=== PATIENT | female | born 1945 | race Hispanic/Latino ===

== ENCOUNTER 2017-04-23 20:43 | Emergency (ER) | payer MEDICARE ==
[~2017-04-23] VITALS: Ht 154.9 cm; Wt 51.0 kg
[2017-04-23 21:06] VITALS: BP 128/74; PULSE 75; RESP 18; O2SAT 100
--- NOTE | 2017-04-23 21:56 | ED.REPORT ---
HPI-Abd Pain F 40 and Over Date of Service Apr 23, 2017 ED Provider: Lemuel Mitchell MD Pt is a 71 year old with a history of diverticulitis and hysterectomy who presents to the ED complaining of sudden LLQ abdominal pain onset 2 days ago. She c/o associated chills and SOB. She denies fever, hematochezia, diarrhea, and dysuria. Pt reports that her diverticulitis was on the right side, and her symptoms feel similar to when she had diverticulitis. She has had 8 inches of her ascending colon removed due to the recurrent diverticulitis on that side. The pt presented to Urgent Care and was referred to the ED for further evaluation. Her last dose of Cipro and Flagyl were at 14:00 today. She notes that she does not tolerate the medications well and is requesting a different medication to treat her if she has diverticulitis Nursing Notes Stated Complaint: SENT BY URGENT CARE FOR CT SCAN Chief Complaint: Female Abdominal Pain Nursing Notes Reviewed: Yes Allergies: Coded Allergies: Contrast Media (Verified Allergy, Intermediate, Tingling, 04/23/17) NSAIDS (Non-Steroidal Anti-Inflamma (Verified Allergy, Mild, Hives and Rash, 04/23/17) shellfish derived (Verified Allergy, Unknown, 04/23/17) General Time Seen by MD: 21:56 Chief Complaint Abdominal pain Hx Obtained From: Patient Arrived By: Walk-in Sudden in Onset?: Yes Onset Occurred: 2 days ago Symptom Duration: Since onset Location: : LLQ Quality: Painful Radiation: : Does not radiate Severity: Current: Moderate Severity: Maximum: Moderate Recent Healthcare: Recent doctor visit Similar Sx Previous: Yes Past Medical History Past Medical History Breast cancer Diverticulitis Past Surgical History Reports: Hysterectomy Smoking History Unknown if Ever Smoker Social History Other Social History: Good social support, Ambulatory Status Independent Review of Systems Constitutional: Reports: Chills, Denies: Fever Respiratory: Reports: Shortness of breath GI: Reports: Abdominal pain, Denies: Diarrhea, Hematochezia Female: Denies: Dysuria Complete sys rev & neg: except as marked. Physical Exam Vital Signs Vital Signs (First) Date Time Temp Pulse Resp B/P Pulse Ox O2 Delivery O2 Flow Rate FiO2 04/23/17 21:06 36.6 75 18 128/74 100 Room Air Initial VS: Reviewed Head / Eyes: Atraumatic, Normocephalic Neck: Supple, Full range of motion Extremities: Vascular intact, Neuro intact Skin: Warm, Dry, No cyanosis Neurologic: Alert, Oriented, Nonfocal Psychiatric: Mood/affect normal, Behavior normal General/Constitutional: Awake, Alert Respiratory / Chest: Atraumatic, Breath sounds NL, Breath sounds = bilat Cardiovascular: Heart rate NL, Regular rhythm, Heart sounds NL Abdomen: Atraumatic LLQ tenderness to palpation Back: Atraumatic, Full range of motion Interpretation & Diagnostics Lab Results Interpretation Result Diagram: 04/23/17214104/23/172141 Test 04/23/17 21:42 White Blood Count 5.2th/mm3 (3.8-10.1) Red Blood Count 4.14mil/mm3 (3.90-5.20) Hemoglobin 12.2g/dL (12.0-15.6) Hematocrit 35.1% (35.0-46.0) Mean Corpuscular Volume 84.8fL (81-100) Mean Corpuscular Hemoglobin 29.5pg (27.0-35.0) Mean Corpuscular Hemoglobin Concent 34.8% (32.0-37.0) Red Cell Distribution Width 12.2% (12.3-15.4) Platelet Count 270bil/L (150-400) Neutrophils (%) (Auto) 62.7% (40-74) Lymphocytes (%) (Auto) 24.7% (14-46) Monocytes (%) (Auto) 9.9% (4-12) Eosinophils (%) (Auto) 1.9% (0-5) Basophils (%) (Auto) 0.6% (0-3) Sodium Level 136mEq/L (134-144) Potassium Level 3.4mEq/L (3.5-5.2) Chloride Level 98mEq/L (97-108) Carbon Dioxide Level 23mmol/L (18-29) Blood Urea Nitrogen 11mg/dL (8-27) Creatinine 0.66mg/dL (0.57-1.00) Estimat Glomerular Filtration Rate 126mL/min (>59) Glucose Level 97mg/dL (60-99) Calcium Level 9.5mg/dL (8.5-10.1) Magnesium Level 2.0mg/dL (1.6-2.6) Total Bilirubin 0.3mg/dL (0.0-1.2) Aspartate Amino Transf (AST/SGOT) 14U/L (0-50) Alanine Aminotransferase (ALT/SGPT) 13U/L (0-32) Alkaline Phosphatase 91U/L (25-165) Total Protein 7.6g/dL (6.4-8.4) Albumin 4.0g/dL (3.4-5.0) Lipase 18U/L (13-60) Hold Miles Top Tube Received (Received) CT Abd / Pelvis Interpretation CONCLUSION: 1. Focal diverticulitis at the distal descending colon with mild inflammatory changes. 2. No free air, abscess, or bowel obstruction. 3. Nonspecific mild gallbladder distention. No calcified stones or pericholecystic inflammation. Transmitted to the ED at 00:47 by Rajesh Villalpando M.D. Study type: Abdominal CT no contrast Interpretation / Wet Read by: Interpret - Radiologist Re-Eval/Medical Decision Med Decision/Clinical Course 71-year-old female with a history of right-sided diverticulitis status post partial colectomy presenting with left-sided pain that feels similar to her previous episodes of diverticulitis. She has never had left-sided diverticulitis to this point. CT scan today confirms the diagnosis. Vitals are stable. There is no complication such as abscess or perforation. Based on her intolerance to the Flagyl and Cipro I switched her to Augmentin 1000 mg twice a day 10 days. Patient advised to follow-up with new PCP within the next week for a recheck Source of Hx: Old records Re-Evaluation/Progress #1: Time of Eval: 00:27 Re-Evaluation/Progress Note: Pt rechecked. Updated pt on results. All questions addressed. Re-Evaluation/Progress #2: Time of Eval: 00:59 Re-Evaluation/Progress Note: Pt rechecked. Informed pt of findings. Informed pt of plan for discharge. Pt understands and agrees with plan for discharge. F/U instructions and RTER warnings given. All questions addressed. Counseled Regarding: Diagnosis, Lab results, Need for follow-up, When/why to return to ED Discharge & Departure Primary Impression: Diverticulitis Diverticulitis site: large intestine Diverticulitis bleeding: without bleeding Diverticulitis complication: without perforation or abscess Qualified Code: K57.32 - Diverticulitis of large intestine without perforation or abscess without bleeding Disposition: Home Discharge Condition All VS Reviewed: Yes Condition: Stable Patient Instructions: Diverticulitis (ED) Additional Instructions: Thank you for entrusting us with your care. Your CAT scan shows that you have diverticulitis. There was no abscess or anything that needs to be surgically cut open. We will give you your first dose of Augmentin tonight, and you can picker and packer your prescription Augmentin tomorrow. Call the referral clinic tomorrow to set up a follow up appointment for next week. Return to the Emergency Department for any new or worsening symptoms. Referrals: [facility] Scribe Attestation Portions of this note were transcribed by Debbie Ferraro. I, Dr. Mitchell personally performed the history, physical exam and medical decision-making; I reviewed and confirmed the accuracy of the information in the transcribed note. Signed by: Vladimir Randolph, 04/23/17. copies to: [facility] Kevin Mitchell DO Apr 23, 2017 21:56 Debbie Baig Apr 23, 2017 22:23
[2017-04-23 21:58] LABS: BASOPHILS % (AUTO) 0.6 % (0-3); EOSINOPHILS % (AUTO) 1.9 % (0-5); MONOCYTES % (AUTO) 9.9 % (4-12); Mean Corpuscular Hemoglobin 29.5 pg (27.0-35.0); Mean Corpuscular Volume 84.8 fL (81-100); NEUTROPHILS % (AUTO) 62.7 % (40-74); Platelet Count 270 bil/L (150-400)
[2017-04-23] MEDS ORDERED: Iohexol 300 mg/mL 30 mL Inj PO ONE (22:00)
[2017-04-24] MEDS ORDERED: Amoxicillin-Clav 500-125 mg Tablet PO ONE (01:10)
[2017-04-24 02:00] VITALS: BP 124/80; PULSE 80; RESP 16; O2SAT 98
--- NOTE | 2017-04-24 08:39 | DRSVH ---
PROCEDURE: CT ABDOMEN AND PELVIS WITHOUT CONTRAST ([id number]) INDICATIONS: LLQ pain, chills, h/o diviticulitis on R side TECHNIQUE: After the administration of oral contrast, 5 mm thick sections acquired from the diaphragms to the sy mphysis. 5 mm coronal and sagittal reformats were performed. For radiation dose reduction, the foll owing was used: automated exposure control, adjustment of mA and/or kV according to patient size. COMPARISON: None. FINDINGS: Image quality: None ABDOMEN: Lung bases: Lung bases are clear. Heart size is normal. Solid organs: Liver and spleen are normal in size. Gallbladder is prominent in size but without any stone, wall thickening or pericholecystic fluid seen.. Pancreas is normal in size. No adrenal nodu les. Both kidneys are normal in size, without hydronephrosis or nephrolithiasis. Peritoneum and bowel: Bowel loops demonstrate normal wall thickness and caliber. No free fluid or a ir. Duodenal diverticulum from the second portion of the duodenum is seen. The appendix is normal. C olonic diverticula are present and there are changes suspicious for an acute diverticulitis the dista l descending sigmoid colon junction this is a relatively short segment Nodes and vessels: No retroperitoneal or mesenteric adenopathy by size criteria aorta and inferior v kody cava are normal in size. Miscellaneous: Small fatty umbilical hernia is present. PELVIS: Genitourinary: Bladder wall thickness is normal. Uterus has been removed. Miscellaneous: No inguinal hernias or adenopathy. Bones: No suspicious bony lesions. No vertebral body compression fractures. IMPRESSION: Changes most consistent with an acute diverticulitis without free air or fluid at the descending col on sigmoid junction. Distended gallbladder but otherwise normal without abnormality of the pancreas or biliary tree. Small duodenal diverticulum is noted. Previous hysterectomy. Dictated by: Rubio Rosario M.D. on 04/24/2017 at 8:31 this report corresponds to the findings of the preliminary NSR report. Approved by: Rubio Rosario M.D. on 04/24/2017 at 8:37
== END 2017-04-24 01:20 | disposition home or self-care (01) ==
LOC: SED 20:43
DX: K57.32 Diverticulitis of large intestine without perforation or abscess without bleeding (principal); R06.02 Shortness of breath; Z88.8 Allergy status to other drugs, medicaments and biological substances; Z91.013 Allergy to seafood; Z91.041 Radiographic dye allergy status